=== PATIENT | female | born 1985 | race Caucasian/White ===

== ENCOUNTER → 2020-04-03 15:22 | Outpatient (CLI) | payer OTHER, SELFPAY ==
--- NOTE | ~2020-04-03 | XR_ITS ---
EXAMINATION: XR hip LT 2V w AP pelvis DATE: 04/03/2020 15:38 INDICATION: Left hip pain. TECHNIQUE: An anteroposterior view pelvis and 2 views of left hip were obtained. COMPARISON: None. FINDINGS: Bone alignment is normal. No fracture. The hip joint spaces are normal. There is an intraut erine device in expected position. There is a surgical clip in left pelvis. IMPRESSION: 1. Normal hips. Reviewed, dictated and finalized at location A. CLEANING MACHINE OPERATOR IMPRESSION: 1. Normal hips.
== END ==
DX: M25.552 Pain in left hip (principal)
CPT/HCPCS: 73502